=== PATIENT | male | born 1985 | race Caucasian/White ===

== ENCOUNTER 2018-03-04 08:17 | Emergency (ER) | payer MEDICAID, OTHER ==
[2018-03-04] MEDS ORDERED: HYDROmorphone 1 MG/ML Syringe IM ONE (08:22)
[2018-03-04 08:23] VITALS: BP 179/95
[2018-03-04] MEDS ORDERED: LORazepam 1 MG Tab PO ONE (08:24)
[2018-03-04] MEDS ORDERED: HYDROmorphone 1 MG/ML Syringe IV ONE (08:43)
--- NOTE | 2018-03-04 08:52 | EDM.PDOC ---
ED HPI GENERAL MEDICAL PROBLEM - General Chief Complaint: Laceration Stated Complaint: nail in fingers Time Seen by Provider: 03/04/18 08:47 Source of Information: Reports: Patient History Limitations: Reports: No Limitations - History of Present Illness INITIAL COMMENTS - FREE TEXT/NARRATIVE: Pt arrived with a nail per a nail gun in the left index and left middle finger. He is very uncomfortable with this. He is current with his tetanus. Onset: Today, Sudden Duration: Hour(s): Location: Reports: Upper Extremity, Left Associated Symptoms: Reports: No Other Symptoms left hand Pain Score (Numeric/FACES): 10 - Related Data Allergies Allergy/AdvReac Type Severity Reaction Status Date / Time No Known Allergies Allergy Verified 03/04/18 08:20 Home Meds: Home Meds NK [No Known Home Meds] 11/27/15 [History] Past Medical History - Past Health History Medical/Surgical History: Denies Medical/Surgical History - Past Surgical History Musculoskeletal Surgical History: Reports: Other (See Below) Social & Family History - Tobacco Use Smoking Status *Q: Never Smoker - Caffeine Use Caffeine Use: Reports: Coffee - Recreational Drug Use Recreational Drug Use: No ED ROS GENERAL - Review of Systems Review Of Systems: See Below Constitutional: Reports: No Symptoms HEENT: Reports: No Symptoms Respiratory: Reports: No Symptoms Cardiovascular: Reports: No Symptoms Endocrine: Reports: No Symptoms GI/Abdominal: Reports: No Symptoms : Reports: No Symptoms Musculoskeletal: Reports: Other (pt put a nail through the left middle and left index finger) ED EXAM, SKIN/RASH Exam: See Below Text/Narrative:: there is a nail per a nail gun through the left middle and the left index finger. Exam Limited By: No Limitations General Appearance: Alert, Severe Distress Extremities: Other (pt has a nail through the left index and the left middle finger. ) Course - Vital Signs Last Recorded V/S: Last Vital Signs Temp 36.3 C 03/04/18 08:22 Pulse 60 03/04/18 08:22 Resp 16 03/04/18 08:22 BP 179/95 H 03/04/18 08:22 Pulse Ox 96 03/04/18 08:22 - Orders/Labs/Meds Meds: Medications Discontinued Medications Generic Name Dose Route Start Last Admin Trade Name Freq PRN Reason Stop Dose Admin Bacitracin 1 dose 03/04/18 09:22 03/04/18 09:26 Bacitracin Oint 1 Gm TOP 03/04/18 09:23 1 dose ONETIME ONE Administration Hydromorphone HCl 1 mg 03/04/18 08:22 03/04/18 08:27 Dilaudid IM 03/04/18 08:23 1 mg ONETIME ONE Administration Hydromorphone HCl 1 mg 03/04/18 08:43 03/04/18 08:50 Dilaudid IV 03/04/18 08:44 1 mg ONETIME ONE Administration Ceftriaxone Sodium 1 gm/ 50 mls @ 100 mls/hr 03/04/18 09:23 03/04/18 09:26 Sodium Chloride IV 03/04/18 09:52 100 mls/hr ONETIME ONE Administration Ketorolac Tromethamine 30 mg 03/04/18 09:31 03/04/18 09:37 Toradol IVPUSH 03/04/18 09:32 30 mg ONETIME ONE Administration Lorazepam 1 mg 03/04/18 08:24 03/04/18 08:27 Ativan PO 03/04/18 08:25 1 mg ONETIME ONE Administration - Re-Assessments/Exams Free Text/Narrative Re-Assessment/Exam: 03/04/18 09:23 pt was given dilaudid 2mg in total. He was given ativan 1 mg. He was very anxious and uncomfortable at first but he was able to relax prior to pulling the naiils out. He had a nail in with the metal spikes on it. For this reason the nail was turned out and it did move quite easily. Xrays will be obtained to see if there is any bone damage. He is current with his tetanus. He was given rocepen 1 gm iv. 03/04/18 09:35 pt has a fracture through the distal 2nd phalanx. from where the nail went through. The index finger was neg for fracture. Departure - Departure Time of Disposition: 08:25 Disposition: Home, Self-Care 01 Condition: Good Clinical Impression: Foreign body in hand, Finger fracture, left - Discharge Information Instructions: Hand or Foot Foreign Body, Adult, Laceration Care, Adult, Easy-to -Read Referrals: PCP,None [Primary Care Provider] - Forms: ED Department Discharge Care Plan Goals: soak in soapy water bid, elevate the hand, dress with bacatracin and guauze, keep a splint on the end off the middle finger, appt with orth next wed, augmentin 875 bid, norco 5./325 q6h prn for pain, no work for the next 2 days, cool pack the fingers to decrease swelling and pain.
[2018-03-04] MEDS ORDERED: Bacitracin Oint 1 GM U/D Packet TOP ONE (09:22)
[2018-03-04] MEDS ORDERED: cefTRIAXone 1 GM in Sodium Chloride 0.9% 50 ML IV ONE (09:23)
[2018-03-04] MEDS ORDERED: Ketorolac 30 MG/ML SDV IVPUSH ONE (09:31)
--- NOTE | 2018-03-05 09:12 | CR ---
Fingers Multiple Lt CLINICAL HISTORY: Pain, trauma FINDINGS: There is soft tissue swelling. There is a nondisplaced fracture of the third middle phalanx and the distal aspect. No articular surface involvement is identified. Impression: Fracture of the third middle phalanx
== END 2018-03-04 10:07 | disposition home or self-care (01) ==
LOC: JP.ED 08:17
DX: S62.633A Displaced fracture of distal phalanx of left middle finger, initial encounter for closed fracture (principal); S60.552A Superficial foreign body of left hand, initial encounter; W29.4XXA Contact with nail gun, initial encounter
CPT/HCPCS: 73140; 96365; 96372; 96375; 99284; A9270; J0696; J1170; J1885; J7050

== ENCOUNTER 2018-12-20 01:00 | Emergency (ER) | payer SELFPAY ==
[2018-12-20] MEDS ORDERED: Tetracaine HCl/PF 0.5% 4 ML Bottle EYEBOTH ONE (01:21)
[2018-12-20 01:28] VITALS: BP 135/79
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
== END 2018-12-20 02:30 | disposition home or self-care (01) ==
LOC: JP.ED 01:00
DX: H16.133 Photokeratitis, bilateral (principal); F17.210 Nicotine dependence, cigarettes, uncomplicated
CPT/HCPCS: 99283